=== PATIENT | female | born 2000 | race Caucasian/White ===

== ENCOUNTER 2019-01-31 01:24 | Inpatient (IN) | payer OTHER ==
--- OUTSIDE RECORDS SUMMARY | 2019-01-31 01:27 | XMS REPORT ---
:2000 Author Organization eClinicalWorks Care Team Providers Name Role Phone Sly Kimbrough Provider Role Unavailable Allergies, Adverse Reactions, Alerts Substance Reaction Event Type penicillin Info Not Available Drug Allergy metal Info Not Available Non Drug Allergy Problems Problem Type Condition Code Onset Dates Condition Status Assessment Amenorrhea N91.2 Active Problem Rash and nonspecific skin eruption R21 Active Assessment Encounter for supervision of Z34.91 Active low-risk in first trimester Assessment Encounter to determine O36.80X0 Active viability of , single or unspecified fetus Medications No Known Medications Results No Known Results Summary Purpose eClinicalWorks Submission
--- OUTSIDE RECORDS SUMMARY | 2019-01-31 01:27 | XMS REPORT ---
:2000 Author Organization eClinicalWorks Care Team Providers Name Role Phone Sly Kimbrough Provider Role Unavailable Allergies No Known Allergies Problems Problem Type Condition Code Onset Dates Condition Status Problem Rash and nonspecific skin eruption R21 Active Medications No Known Medications Results No Known Results Summary Purpose eClinicalWorks Submission
--- OUTSIDE RECORDS SUMMARY | 2019-01-31 01:27 | XMS REPORT ---
:2000 Author Organization eClinicalWorks Care Team Providers Name Role Phone Sly Kimbrough Provider Role Unavailable Allergies No Known Allergies Problems Problem Type Condition Code Onset Dates Condition Status Problem Rash and nonspecific skin eruption R21 Active Problem Encounter for care in Z34.02 Active second trimester of first Assessment Encounter for care in Z34.02 Active second trimester of first Medications Medication Code Code Instructions Start End Status Dosage System Date Date Prenate Mini [facility] [id number] 18-0.6-0.4-350 August 18, Active 1 capsule MG Orally Once a 2019 day Flagyl [facility] [id number] 500 MG Orally July 29, Active 1 tablet twice a day 2018 Prenate Elite [facility] [id number] 20-0.6-0.4 MG July 25, Active 1 tablet Orally Once a 2019 day Results No Known Results Summary Purpose eClinicalWorks Submission
--- OUTSIDE RECORDS SUMMARY | 2019-01-31 01:28 | XMS REPORT ---
:2000 Author Organization eClinicalWorks Care Team Providers Name Role Phone Sly Kimbrough Provider Role Unavailable Allergies No Known Allergies Problems Problem Type Condition Code Onset Dates Condition Status Problem Rash and nonspecific skin eruption R21 Active Problem Encounter for care in Z34.02 Active second trimester of first Medications No Known Medications Results No Known Results Summary Purpose eClinicalWorks Submission
[2019-01-31] MEDS ORDERED: PROMETHAZINE 25 MG/ML VIAL IM PRN (02:37)
[2019-01-31] MEDS ORDERED: MEPERIDINE HCL 25 MG/0.5 ML IV PRN (02:37)
[2019-01-31] MEDS ORDERED: CARBOPROST TROME 250 MCG/ML IM PRN (02:37)
[2019-01-31] MEDS ORDERED: METHYLERGONOVINE 0.2MG/ML AMP IM PRN (02:37)
[2019-01-31] MEDS ORDERED: Ringers Lactate 1,000 ML IV PRN (02:37)
[2019-01-31] MEDS ORDERED: BUTORPHANOL 1 MG/ML INJ IV PRN (02:37)
[2019-01-31] MEDS ORDERED: OXYTOCIN/LR 20 UNIT/1,000 ML BAG IV SCH ×2 (03:00→12:00)
[2019-01-31] MEDS ORDERED: Ringers Lactate 1,000 ML IV SCH (03:00)
[2019-01-31 03:02] VITALS: BMI 28.3
[2019-01-31 03:38] LABS: Absolute Lymphocytes (CBC) 1.8 K/uL (0.7-4.9); Basophils % 0.2 % (0-1.3); Hematocrit 29.1 % (36.0-45.0); Lymphocytes % 12.1 % (15.3-44.8); MPV 8.4 fL (7.6-11.3); RBC Red Blood Cell Count 3.99 M/uL (3.86-4.86)
[2019-01-31 03:44] LABS: Urine Appearance TURBID; Urine Bilirubin NEGATIVE (NEG); Urine Blood 3+ (NEG); Urine Color YELLOW; Urine Glucose NEGATIVE (NEG); Urine Protein NEGATIVE (NEG); Urine pH 7.5 (5.0-7.0)
[2019-01-31 03:48] LABS: Urine Microscopic Reflex ORDER UMIC
[2019-01-31 03:54] LABS: Urine Culture Reflex Order REFLEXED
[2019-01-31] MEDS ORDERED: FENTANYL/BUPIVACAINE/NS/PF 200 MCG/100 ML BAG EP PRN (03:54)
[2019-01-31 04:00] LABS: Urine Amorphous Sediment 3+ /HPF (NONE SEEN); Urine Bacteria >50 /HPF (<20)
[2019-01-31] MEDS ORDERED: METHYLERGONOVINE 0.2MG/ML AMP IM ONE (07:14)
[2019-01-31] MEDS ORDERED: ROPIVACAINE HCL 0 ML ONE (07:31)
[2019-01-31] MEDS ORDERED: FENTANYL CITR 100 MCG/2 ML IV ONE (07:33)
[2019-01-31] MEDS ORDERED: BUPIVACAINE 0.25% PF 10 ML VIAL ONE ×3 (08:20→08:45)
[2019-01-31] MEDS ORDERED: FENTANYL/BUPIVACAINE/NS/PF 0 MCG/0 ML BAG EP ONE (08:21)
[2019-01-31] MEDS ORDERED: FENTANYL/BUPIVACAINE/NS/PF 200 MCG/100 ML BAG EP ONE (08:24)
[2019-01-31] MEDS ORDERED: FENTANYL CITR 100 MCG/2 ML ONE (08:46)
--- NOTE | 2019-01-31 10:59 | PREOPHP ---
Date of Admission: 01/31/2019 History Of Present Illness: A 18-year-old primigravida, at 39 weeks 4 days, scheduled for induction on Wednesday, came in active labor last night. Patient is now 3 cm, 90% to 100% effaced, vertex, -1 sta tion, rupture of membranes, very light meconium staining. FHTs normal, reactive. She is Rh positive , immune to Rubella. Negative beta strep screen. Blood pressures are somewhat elevated. Her initia l urine was a clean-catch, will get a catheter specimen and see if there is any protein. Her reflexe s are basically normal and she has no discernible edema. Nonetheless, we will check her to make sure she is not developing preeclampsia. This is discussed with the family. The patient has had 2 doses of Stadol thus far. Probably, we will be requesting epidural anesthesia when she makes a little bit more progress. Right now seems to be doing well. Full labor talk given. PATY/TAMANNA Voice ID: [id number]
[2019-01-31] MEDS ORDERED: LIDOCAINE 1% MPF 30 ML VIAL ONE ×2 (11:00→11:03)
[2019-01-31] MEDS ORDERED: Oxycodone HCl/Acetaminophen 1 TAB TAB PO PRN ×2 (11:26)
[2019-01-31] MEDS ORDERED: DIPHENHYDRAMINE 25 MG TAB/CAP PO PRN (11:26)
[2019-01-31] MEDS ORDERED: BISACODYL 10 MG RECTAL SUPP RECT PRN (11:26)
[2019-01-31] MEDS ORDERED: DOCUSATE NA/SENNA CONC 1 TAB PO PRN (11:26)
[2019-01-31] MEDS ORDERED: ACETAMINOPHEN 500 MG TAB PO PRN (11:26)
[2019-01-31] MEDS: IBUPROFEN 600 MG TAB PO PRN (18:59)
--- NOTE | 2019-01-31 20:53 | OP ---
Surgeon: Nav Wellington MD A 18-year-old, primigravida, 39 weeks 4 days, scheduled for induction on Wednesday, came in in active la bor this morning. During the initial part of the labor, had Stadol 1 mg IV x2, at approximately 3-1/ 2 to 4 cm, requested and received epidural anesthesia. Second stage of 20 minutes approximately. Sp ontaneous vaginal delivery of a 6-pound 4-ounce, male infant, Apgars 9 and 9. Three small first-degr ee lacerations involving both labia minora and the posterior fourchette all sutured with 2-0 chromic after local infiltration. Schultze delivery of the placenta, which was inspected and noted to be int act and normal. 350 mL blood loss. Patient is Rh positive, immune to Rubella, negative beta strep s creen. Tolerated all procedures well. Final Diagnoses: Term intrauterine , 39 weeks 4 days, spontaneous labor, vaginal delivery, epidural anesthesia supplemented with local anesthesia. PATY/TAMANNA Voice ID: [id number] Report ID: [id number]
[2019-01-31 20:56] LABS: RPR (Rapid Plasma Reagin) NON-REACT (NON-REACT)
[2019-02-01] MEDS: IBUPROFEN 600 MG TAB PO PRN (09:30)
[2019-02-01 11:58] VITALS: BP 117/80; TEMP 97.8
--- NOTE | 2019-02-01 21:56 | DS ---
Date of Discharge: 02/01/2019 A 18-year-old primigravida, 39 weeks 4 days, came in in active labor. Subsequently, delivered a 6-po und 4-ounce male infant, Apgars 9 and 9. Epidural anesthesia. Local infiltration supplement for rep air of 3 small first-degree lacerations 2-0 chromic. Schultze delivery of the placenta, which was in spected and noted to be intact and normal. 350 mL or less blood loss. Rh positive, immune to Rubell a. Negative beta strep screen. ; afebrile, ambulating, voiding. Lochia is normal. No po st epidural problems. No analgesics requested on dismissal. She has had her Tdap shot. We will rep ort any temperature elevation of 100 degrees or greater, severe pain, heavy bleeding, or any other ty pe of abnormalities. Final Diagnoses: Term uterine 39 weeks 4 days, spontaneous vaginal delivery. Epidural ane sthesia. PATY/TAMANNA Voice ID: [id number] Report ID: [id number]
[2019-02-05 03:01] LABS: HBsAG Nonreactive (Nonreactive)
== END 2019-02-01 13:05 | disposition home or self-care (01) | DRG 807 ==
LOC: L&D 01:24 → UNDOADMIN 02:28 → 2ND-WC 02:28
PROVIDERS: ADMIT Specialist; ATTEND Specialist
PROC: 10E0XZZ Delivery of Products of Conception, External Approach (ICD-10-PCS; principal; 2019-01-31)
PROC: 0HQ9XZZ Repair Perineum Skin, External Approach (ICD-10-PCS; 2019-01-31)
PROC: 10907ZC Drainage of Amniotic Fluid, Therapeutic from Products of Conception, Via Natural or Artificial Opening (ICD-10-PCS; 2019-01-31)
DX: O70.0 First degree perineal laceration during delivery (principal); Z37.0 Single live birth; Z3A.39 39 weeks gestation of pregnancy; Z28.21 Immunization not carried out because of patient refusal
CPT/HCPCS: 36415; 81003; 81015; 85025; 86592; 86901; 87086; 87088; 87340; J0595; J2210; J2550; J3010; J7120

== ENCOUNTER 2020-01-29 03:59 | Inpatient (IN) | payer OTHER ==
--- OUTSIDE RECORDS SUMMARY | 2020-01-29 04:02 | XMS REPORT | Continuity of Care Document ---
:2000 Author Organization [facility] t Address [address] [place] [address] [address] [place] [address] Care Team Providers Name Role Phone Luana Almodovar Attending Clinician Problems Condition Condition Condition Status Onset Resolution Last Treating Co mments Source Name Details Category Date Date Treatment Clinician Date Rash and Rash and Problem Active [facility]ifi Katarina kes - c skin c skin [facility]oria eruption eruption l [facility] Encounter Encounter Problem Active [facility] a care in care in l second second [facility] trimester trimester ent of first of first Clinic s Allergies, Adverse Reactions, Alerts Allergy Allergy Status Severity Reaction(s) Onset Inactive Treating Comm ents Source Name Type Date Date Clinician penicill Adverse Active Info Not [facility] in Reaction Available kes - Memoria [facility] metal Adverse Active Info Not [facility] Reaction Available [facility] - [facility]oria [facility] ent [facility] Medications Ordered Filled Start Stop Current Ordering Indication Dosage Frequency Signature Comments Components Source Medication Medication Date Date Medication? Clinician (SIG) Name Name Sher Dsouzaate Yes Sly [address] [facility] Mini Mini 6-13 R[facility]hi [facility] - 00:00: Memoria 00 [facility] ent [facility] Flagyl Flagyl 2018- No Sly [address] [facility] 5-24 04-24 [facility] - 00:00: 00:00 Memoria 00 :00 [facility] Prenate Prenate Yes Sly [address] [facility] Elite Elite 5-20 Rekhi [facility] - 00:00: Memoria 00 [facility] Procedures This patient has no known procedures. 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 [id number] Visit REGIONAL [id number] MATERNAL [id number] & CHILD [address] [place] [address] 2018-09-06 2018-09-06 [facility] [id number] [facility] 14:15:00 14:15:00 [facility] [place]note 2] 2018-08-23 2018-08-23 [facility] [id number] 13:35:00 13:35:00 t [facility]ens [facility]ens [facility] [place][note 2] 2018-08-18 2018-08-18 [facility] [id number] 14:58:00 14:58:00 t [facility]ens [facility]omens Care [facility] - Care [facility] [place][note 2] 2018-08-18 2018-08-18 [facility] [id number] 13:58:00 13:58:00 t [facility] Care [facility] - Care [facility] [place][note 2] 2018-08-18 2018-08-18 [facility] [id number] 10:00:00 10:00:00 t [facility] [place][note 2] 2018-07-20 2018-07-20 [facility] [id number] 15:15:00 15:15:00 t [facility]ens [facility]omens Care [facility] - [facility] [place][note 2] 2018-06-28 2018-06-28 [facility] [id number] 10:43:00 10:43:00 t [facility]ens [facility]ens Care [facility] - [facility] [place][note 2] 2017-06-23 2017-06-23 [facility] [id number] 09:15:00 09:15:00 [facility] 2017-06-22 2017-06-22 Outpatient Kayla Peña [id number] 15:33:00 15:33:00 [facility] 2017-06-14 2017-06-14 Outpatient Kayla Peña [id number] 13:15:00 13:15:00 [facility] Results This patient has no known results.
[2020-01-29] MEDS ORDERED: Ringers Lactate 1,000 ML IV PRN (04:07)
[2020-01-29] MEDS ORDERED: METHYLERGONOVINE 0.2MG/ML AMP IM PRN (04:07)
[2020-01-29] MEDS ORDERED: MEPERIDINE HCL 25 MG/ML SYR IV PRN (04:07)
[2020-01-29] MEDS ORDERED: PROMETHAZINE INJ 25 MG/ML AMP IM PRN (04:07)
[2020-01-29] MEDS ORDERED: BUTORPHANOL 1 MG/ML INJ IV PRN (04:07)
[2020-01-29] MEDS ORDERED: CARBOPROST TROME 250 MCG/ML IM PRN (04:07)
[2020-01-29 04:42] VITALS: BMI 28.3
[2020-01-29 04:54] LABS: Urine Appearance CLEAR; Urine Bilirubin NEGATIVE (NEG); Urine Blood NEGATIVE (NEG); Urine Color YELLOW; Urine Glucose NEGATIVE (NEG); Urine Protein NEGATIVE (NEG)
[2020-01-29 04:57] LABS: Absolute Lymphocytes (CBC) 1.9 K/uL (0.7-4.9); Basophils % 0.7 % (0-1.3); Hematocrit 33.1 % (36.0-45.0); Lymphocytes % 22.7 % (15.3-44.8); MPV 7.8 fL (7.6-11.3); RBC Red Blood Cell Count 4.29 M/uL (3.86-4.86)
[2020-01-29] MEDS ORDERED: OXYTOCIN/LR 20 UNIT/1,000 ML BAG IV SCH (05:00)
[2020-01-29] MEDS ORDERED: Ringers Lactate 1,000 ML IV SCH (05:00)
[2020-01-29 05:25] LABS: Anisocytosis 3+; Blood Morphology Comment NOTED (NOT SEEN); Platelet Estimate ADEQ; White Blood Cell Scan OK (OK)
[2020-01-29 05:31] LABS: Urine Bacteria 20-50 /HPF (<20); Urine Culture Reflex Order REFLEXED; Urine Mucus 2+ /HPF (NONE SEEN); Urine RBC <5 /HPF (NONE SEEN); Urine Urothelial Cells <5 /HPF (NONE SEEN)
--- NOTE | 2020-01-29 07:29 | PREOPHP ---
Date of Admission: 01/29/2020 History Of Present Illness: A 19-year-old 2, para 1, 39 weeks 1 day, followed antepartum wit hout complications. Rh positive, immune to rubella negative. Strep negative, COVID, noted to be 4 c m in the office. She is indra regularly. FHTs normal, reactive. Vital signs normal. She is now 4.5 cm, 50%, maybe 60% effaced, but the baby is still between -1, -2 station. We will wait for a n hours, so I am going to check her again to see if the baby is descended somewhat. She knows if mem brane ruptures occur spontaneously to notify the nurses, so they can check quickly. Family History: Noncontributory. Allergies: THE PATIENT IS ALLERGIC TO PENICILLIN. Physical Examination: HEENT: Clear. Pupils equal, round, reactive to light and accommodation. Conjunctivae well perfused . No oral, lingual, or buccal lesions. Chest: Lungs are clear. Heart: Without murmurs, thrills, heaves, or rubs. Breasts: Without masses on previous visits. Abdomen: Term size. Extremities: Clear without edema, cyanosis, or clubbing. Pelvic exam as stated. Admit for stabilization and delivery later today. The patient has been anemi c throughout the entire and this has been discussed with patient on numerous occasions. PATY/TAMANNA Voice ID: [id number]
[2020-01-29] MEDS ORDERED: FENTANYL CITR 100 MCG/2 ML IV ONE (07:51)
[2020-01-29] MEDS ORDERED: FENTANYL/BUPIVACAINE/NS/PF 200 MCG/100 ML BAG EP PRN (07:51)
[2020-01-29] MEDS ORDERED: BUPIVACAINE 0.25% PF 10 ML VIAL IV PRN (07:52)
[2020-01-29] MEDS ORDERED: LIDOCAINE 1% MPF 30 ML VIAL ONE (08:56)
--- NOTE | 2020-01-29 08:59 | PN ---
Patient is now 7 cm, 60% to 70% effaced, vertex, -1 station, well applied, rupture of membranes, oseas r fluid. FHTs normal, reactive. Expect rapid progress from this point forward. PATY/TAMANNA Voice ID: [id number] Report ID: [id number]
[2020-01-29] MEDS ORDERED: FENTANYL CITR 100 MCG/2 ML ONE (09:18)
--- NOTE | 2020-01-29 09:38 | PN ---
At her request, the patient has had a spinal block with fentanyl, feeling much more comfortable now. Still has cervix all the way around. She is 8.5 to 9. Baby looks good. Devan regularly. We will check her again in the next 20-30 minutes when she is ready to start pushing. It should not ta ke too long at that point. PATY/TAMANNA Voice ID: [id number] Report ID: [id number]
[2020-01-29] MEDS ORDERED: DIPHENHYDRAMINE 25 MG TAB/CAP PO PRN (09:54)
[2020-01-29] MEDS ORDERED: Oxycodone HCl/Acetaminophen 1 TAB TAB PO PRN ×2 (09:54)
[2020-01-29] MEDS ORDERED: ACETAMINOPHEN 500 MG TAB PO PRN (09:54)
[2020-01-29] MEDS ORDERED: BISACODYL 10 MG RECTAL SUPP PR PRN (09:54)
[2020-01-29] MEDS ORDERED: DOCUSATE NA/SENNA CONC 1 TAB PO PRN (09:54)
[2020-01-29] MEDS ORDERED: OXYTOCIN/LR 20 UNITS/1,000 ML BAG IV SCH (10:00)
--- NOTE | 2020-01-29 10:24 | OP ---
Surgeon: Nav Wellington MD A 19-year-old, 2, para 1, 39 weeks 1 day, 4 cm on admission. Rupture of membranes at approxi mately 4.5 to 5 cm. Clear fluid. The patient went rapidly in the labor. Had attempted spinal block with fentanyl, but it did not work very well. Second stage of 15 minutes or less. Precipitous, but controlled vaginal delivery of a 7 pound 2 ounce female, Apgars 9 and 9. First-degree laceration ju st inside the introitus to the right. Six sutures of 2-0 chromic running locked and interrupted. Sc hultze delivery. The placenta was inspected and noted be intact and normal. Mild hypertonus, 0.2 mg of Methergine IM as well as IV drip Pitocin. Estimated blood loss 350 cc at this time. Methergine more prophylactic than anything. She is Rh negative, immune to rubella negative. COVID negative, st rep. Tolerated all procedures well. Final Diagnoses: Term intrauterine at 39 weeks 1 day, vaginal delivery, block with fentany l, mild uterine hypotonus. NBC/MODL Voice ID: [id number] Report ID: [id number]
[2020-01-29] MEDS: METHYLERGONOVINE 0.2 MG TAB PO SCH ×2 (11:00→16:00)
[2020-01-29] MEDS ORDERED: METHYLERGONOVINE 0.2 MG TAB PO ONE (11:12)
[2020-01-29] MEDS ORDERED: IBUPROFEN 600 MG TAB ONE (16:14)
[2020-01-29] MEDS: IBUPROFEN 200 MG TAB PO PRN (16:15)
[2020-01-29 22:51] LABS: RPR (Rapid Plasma Reagin) NON-REACT (NON-REACT)
[2020-01-30] MEDS: IBUPROFEN 200 MG TAB PO PRN (01:05)
--- NOTE | 2020-01-30 07:55 | DS ---
Hospital Course: Margarita Doyle is a 19-year-old 2, para 1, 39 weeks and 1 day, miller lisad a 7 pounds 2 ounces female, Apgars 9 and 9. Small first-degree laceration sutured with 2-0 product tester fiberglass graham. Under local infiltration, the patient had spinal block with fentanyl, but this was not very eff ective for delivery. Schultze delivery of the placenta. Estimated blood loss 350 mL. The patient h as small clots and was given Methergine prophylactically. ; afebrile, ambulating and voidi ng. Lochia is normal. Tdap and flu shots offered. No post spinal block problems or complaints. Rh positive, immune to rubella. Negative strep. Negative COVID. The patient will return to my office in 6 weeks for followup to report any temperature elevation of 100 degrees or greater, severe pain, heavy bleeding, or any other type of abnormalities. Final Diagnoses: Term intrauterine at 39 weeks 1 day, vaginal delivery. Spinal block with fentanyl for delivery. PATY/TAMANNA Voice ID: [id number] Report ID: [id number]
[2020-01-30 08:07] VITALS: BP 129/80; TEMP 97.6
[2020-01-30] MEDS ORDERED: Tdap (Diph,Pertuss(Acell),Tet Vac) 0.5 ML SYR IMVAC ONE (08:17)
[2020-02-02 03:13] LABS: HBsAG Nonreactive (Nonreactive)
== END 2020-01-30 11:45 | disposition home or self-care (01) | DRG 807 ==
LOC: 2ND-WC 03:59
PROVIDERS: ADMIT Specialist; ATTEND Specialist
PROC: 10907ZC Drainage of Amniotic Fluid, Therapeutic from Products of Conception, Via Natural or Artificial Opening (ICD-10-PCS; principal; 2020-01-29)
PROC: 10E0XZZ Delivery of Products of Conception, External Approach (ICD-10-PCS; 2020-01-29)
PROC: 0HQ9XZZ Repair Perineum Skin, External Approach (ICD-10-PCS; 2020-01-29)
DX: O99.02 Anemia complicating childbirth (principal); Z37.0 Single live birth; D64.9 Anemia, unspecified; O62.2 Other uterine inertia; O70.0 First degree perineal laceration during delivery; Z3A.39 39 weeks gestation of pregnancy; Z20.828 Contact with and (suspected) exposure to other viral communicable diseases; Z23 Encounter for immunization
CPT/HCPCS: 36415; 81001; 85025; 86592; 86901; 87086; 87088; 87340; 90471; 90715; J0595; J2210; J2590; J3010; J7120; U0003

== ENCOUNTER 2022-08-31 19:22 | Emergency (ER) | payer OTHER ==
--- OUTSIDE RECORDS SUMMARY | 2022-08-31 19:35 | XMS REPORT | Continuity of Care Document ---
:1999 Author Organization [facility] t Address [address] [place] [address] [address] [place] [address] Care Team Providers Name Role Phone Josseline Orozco Attending Clinician Unavailable KELLY NASH Attending Clinician Unavailable Kelly Almodovar Attending Clinician Doctor Unassigned, [place] Attending Clinician Unavailable Payers Payer Name Policy Type Policy Number Effective Date Expiration Date S ource [place] [id number] 2019 00:00:00 [facility] [id number] 2019 CHOICE MEDICAID 00:00:00 MEDICAID PENDING PENDING 2019 00:00:00 [facility] [id number] 2015 00:00:00 Problems Condition Condition Condition Status Onset Resolution Last Treating Co mments Source Name Details Category Date Date Treatment Clinician Date Limited Limited Disease Active 2020-0 Univers -08 ity of care, care, 00:00: [place] antepartum antepartum 00 Me dical Branch Anemia of Anemia of Disease Active 2020-0 Uni vers mother in mother in - [place] , , [place] ante[place] antepartum 00 [place] BMI BMI Disease Active 2020-0 Univers 21.0-21.9, 21.0-21.9, 8-25 it y of adult adult 00:00: [address] Multiparit Multiparit Disease Active 2020-0 U nivers y y 8-25 ity of 00:00: [address] Tobacco Tobacco Disease Active 2020-0 Univers use during use during 8-25 [place] y of , , [place] ante[place] antepartum 00 Me dical Branch Supervisio Supervisio Disease Active U nivers n of high n of high 8-25 ity of risk risk 00:00: [place] , , 00 Me dical antepartum antepartum Br anch Rash and Rash and Problem Active Commo n nonspecifi nonspecifi Sp saida c skin c skin - [facility] eruption eruption [facility] Encounter Encounter Problem Active Com mon for for Spirit - [facility] care in care in [facility] trimester trimester Medi nahum of [facility] Allergies, Adverse Reactions, Alerts Allergy Allergy Status Severity Reaction(s) Onset Inactive Treating Comm ents Source Name Type Date Date Clinician Penicill Propensi Active Swelling [facility] [place] [facility] ers ins ty to 07-11 ity of adverse 00:00: [place] reaction 00 Medical s Branch PENICILL Drug Active Hives Univers INS Class 5-06 ity of 00:00: [place] 00 Medical Branch penicill Adverse Active Info Not Commo n in Reaction Available [facility] metal Adverse Active Info Not Common Reaction Available [facility] Social History Social Habit Start Date Stop Date Quantity Comments Source ASSERTION 2019-05-30 [facility] 00:00:00 [facility] History of Smoker [facility] tobacco use [facility] Sex Assigned At [facility] y of [facility] Tobacco use and 2019-11-14 2019-11-14 Never used Univers y of exposure 00:00:00 00:00:00 [facility] Alcohol intake 2019-11-14 2019-11-14 Ex-drinker [facility] 00:00:00 00:00:00 (finding) [facility] Smoking Status Start Date Stop Date Source Current some day smoker 2019-11-14 00:00:00 [facility] [place] [facility] ersity of [facility] Medications Ordered Filled Start Stop Current Ordering Indication Dosage Frequency Signature Comments Components Source Medication Medication Date Date Medication? Clinician (SIG) Name Name 2019- No Take by Unive rs vit 11-13 mouth. ity of calc,iron,f 14:14: 00:00 [place] [facility] 11 :00 Medical ( Branch VITAMIN ORAL) 2019- No Take by Unive rs vit 11-13 mouth. ity of calc,iron,f 14:14: 00:00 [place] olic 11 :00 Medical ( Branch VITAMIN ORAL) ferrous 2020-0 Yes [id number] 325mg Take 1 Un july sulfate 325 8-26 tablet by ity of mg (65 mg 00:00: mouth 2 [place] iron) 00 (two) Medical tablet times Branch daily. ascorbic 2020-0 Yes [id number] 500mg Take 1 U nivers acid, 8-26 tablet by ity of vitamin C, 00:00[place] 500 mg 00 (three) Medical tablet times Branch daily. PNV 67-iron 2020-0 Yes [id number] 1{capsu Take 1 Univers ps-folate 8-26 le} capsule by ity of no.1-dha 00:00: mouth [place] (VITAFOL 00 daily. Medical ULTRA) 29 Branch mg iron- 1 mg-200 mg Cap ferrous 2020-0 Yes [id number] 325mg Take 1 Un july sulfate 325 8-26 tablet by ity of mg (65 mg 00:00: mouth 2 [place] iron) 00 (two) Medical tablet times Branch daily. ascorbic 2020-0 Yes [id number] 500mg Take 1 U nivers acid, 8-26 tablet by ity of vitamin C, 00:00: [place] 500 mg 00 (three) Medical tablet times Branch daily. PNV 67-iron 2020-0 Yes [id number] 1{capsu Take 1 Univers ps-folate 8-26 le} capsule by ity of no.1-dha 00:00: mouth [place] (VITAFOL 00 daily. Medical ULTRA) 29 Branch mg iron- 1 mg-200 mg Cap ferrous 2020-0 Yes [id number] 325mg Take 1 Un july sulfate 325 8-26 tablet by ity of mg (65 mg 00:00: mouth 2 [place] iron) 00 (two) Medical tablet times Branch daily. ascorbic 2020-0 Yes [id number] 500mg Take 1 U nivers acid, 8-26 tablet by ity of vitamin C, 00:00: mouth 3 [place] 500 mg 00 (three) Medical tablet times Branch daily. PNV 67-iron 2020-0 Yes [id number] 1{capsu Take 1 Univers ps-folate 8-26 le} capsule by ity of no.1-dha 00:00: mouth [place] (VITAFOL 00 daily. Medical ULTRA) 29 Branch mg iron- 1 mg-200 mg Cap 2020-0 Yes Take by [facility] vit 8-25 mouth. ity of calc,iron,f 14:37: [place] [id number] Medical ( Branch VITAMIN ORAL) Yes Take by [facility] vit 8-25 mouth. ity of calc,iron,f 14:37: [place] [id number] Medical ( Branch VITAMIN ORAL) Yes Take by [facility] vit 8-25 mouth. ity of calc,iron,f 14:37: [place] [id number] Medical ( Branch VITAMIN ORAL) Yes Take by [facility] vit 8-25 mouth. ity of calc,iron,f 14:37: [place] [id number] Medical ( Branch VITAMIN ORAL) hydrOXYzine 2020- No 25mg Take 25 mg Univers (ATARAX) 25 8-25 08-25 by mouth ity of mg tablet 14:35: 00:00 every 6 [place] 01 :00 (six) Medical hours. Branch hydrOXYzine 2019- No 25mg Take 25 mg Univers (ATARAX) 25 8-25 08-25 by mouth ity of mg tablet 14:35: 00:00 every 6 [place] 01 :00 (six) Medical hours. Branch Prenate Prenate Yes Sly 1 capsule Common Mini Mini 6-13 [facility] 00:00: - [facility] 00 [facility] Flagyl Flagyl 2018- No Sly 1 tablet Common 5-24 04-24 [facility] 00:00: 00:00 - [facility] 00 :00 [facility] Prenate Prenate Yes Sly 1 tablet Common Elite Elite 5-20 [facility] 00:00: - [facility] 00 [facility] fluocinolon 2020- No Apply to U nivers e 09-09 08-25 area(s) 2 ity of (DERMA-SMOO 00:00: 00:00 (two) [place] THE/FS BODY 00 :00 times Medical OIL) 0.01 % daily as Bran ch body oil needed for Rash. hydrOXYzine 2020- No 10mg Take 1 Uni vers (ATARAX) 10 09-09 08-25 tablet by it y of mg tablet 00:00: 00:00 mouth [place] 00 :00 every 6 Medical (six) Branch hours as needed for Itching. tretinoin 2019- No Apply to Uni vers (RETIN-A) 09-09 affected ity o f 0.025 % 00:00: 00:00 area(s) at [place] as cream 00 :00 bedtime. Medical Branch fluocinolon 2020- No Apply to U nivers e 09-09 area(s) 2 ity of (DERMA-SMOO 00:00: 00:00 (two) [place] THE/FS BODY 00 :00 times Medical OIL) 0.01 % daily as Bran ch body oil needed for Rash. hydrOXYzine 2019- No 10mg Take 1 Uni vers (ATARAX) 10 09-09 tablet by it y of mg tablet 00:00: 00:00 mouth [place] 00 :00 every 6 Medical (six) Branch hours as needed for Itching. tretinoin 2019- No Apply to Uni vers (RETIN-A) 09-09 affected ity o f 0.025 % 00:00: 00:00 area(s) at [place] as cream 00 :00 bedtime. Medical Branch fluocinonid 2020- No Apply to U nivers e (LIDEX) 07-11 area(s) 2 ity of 0.05 % 00:00: 00:00 (two) [place] ointment 00 :00 times Medical daily. Branch fluocinonid 2020- No Apply to U nivers e (LIDEX) 07-11 area(s) 2 ity of 0.05 % 00:00: 00:00 (two) [place] ointment 00 :00 times Medical daily. Branch betamethaso 2012-03 2020- No Apply to U nivers ne 0-25 area(s) 2 ity of dipropionat 00:00: 00:00 (two) [place] 00 :00 times Medical (DIPROLENE) daily. Branch 0.05 % cream betamethaso 2012-03 2020- No Apply to U nivers ne 0-19 10-25 area(s) 2 ity of dipropionat 00:00: 00:00 (two[place] 00 :00 times Medical (DIPROLENE) daily. Branch 0.05 % cream triamcinolo 2020- No Apply to U nivers ne 11-28 area(s) 2 ity of acetonide 00:00: 00:00 (two) [place] (KENALOG) 00 :00 times Medical 0.1 % daily. Branch ointment triamcinolo 2020- No Apply to U nivers ne 11-28 area(s) 2 ity of acetonide 00:00: 00:00 (two) [place] (KENALOG) 00 :00 times Medical 0.1 % daily. Branch ointment Vital Signs Vital Name Observation Time Observation Value Comments Source Systolic blood 2019-11-14 14:14:00 125 mm[Hg] Univer sity of [facility] Diastolic blood 2019-11-14 14:14:00 80 mm[Hg] Unive rsity of [facility] Heart rate 2019-11-14 14:14:00 101 /min Universi ty [facility] Body temperature 2019-11-14 14:14:00 37 [place] [facility] Respiratory rate 2019-11-14 14:14:00 16 /min [facility] [place] [facility] Body height 2019-11-14 14:14:00 157.5 cm Universi ty [facility] Body weight 2019-11-14 14:14:00 65.97 kg Universi ty [facility] BMI 2019-11-14 14:14:00 26.60 kg/m2 Universi ty [facility] Systolic blood 2019-11-14 14:14:00 125 mm[Hg] Univer sity of [facility] Diastolic blood 2019-11-14 14:14:00 80 mm[Hg] Unive rsity of [facility] Heart rate 2019-11-14 14:14:00 101 /min Universi ty [facility] Body temperature 2019-11-14 14:14:00 37 [place] [facility] Respiratory rate 2019-11-14 14:14:00 16 /min [facility] [place] [facility] Body height 2019-11-14 14:14:00 157.5 cm Universi ty [facility] Body weight 2019-11-14 14:14:00 65.97 kg Universi ty [facility] BMI 2019-11-14 14:14:00 26.60 kg/m2 Universi ty of [facility] Systolic blood 2019-10-31 14:27:00 129 mm[Hg] Univer sity of pressure [facility] Diastolic blood 2019-10-31 14:27:00 86 mm[Hg] Unive rsity of pressure [facility] Heart rate 2019-10-31 14:27:00 102 /min Universi ty [facility] Body temperature 2019-10-31 14:27:00 36.83 [place] [facility] [place] [facility] Respiratory rate 2019-10-31 14:27:00 16 /min [facility] [place] [facility] Body height 2019-10-31 14:27:00 157.5 cm Universi ty [facility] Body weight 2019-10-31 14:27:00 63.957 kg Universi ty [facility] BMI 2019-10-31 14:27:00 25.79 kg/m2 Universi ty [facility] Procedures Procedure Date / Time Performed Performing Clinician Sourantione e POCT URINALYSIS W/O 2019-11-14 14:19:[facility] ASSIGNMENT OF BENEFITS 2019-10-31 16:33:59 Doctor Unassigned, [facility] POCT URINALYSIS W/O 2019-10-31 14:29:00 [facility] [place] [facility] SPECIFIC GRAVITY [facility] POCT TEST 2019-10-31 14:28:00 Sumaya De [facility] [place] [facility] Encounters Start End Encounter Admission Attending Care Care Encounter Source Date/Time Date/Time Type Type Clinicians Facility Department ID 2021-04-[address] [facility] [id number] Common 12:00:48 Josseline [id number] [facility] 2019-12-21 2019-12-21 Outpatient Tiff NASH [facility] [id number] Univers 15:30:00 15:30:00 KELLY lee [facility] 2019-12-21 2019-12-21 Outpatient Tiff NASH [facility] [id number] Univers 15:30:00 15:30:00 KELLY lee [facility] 2019-11-28 2019-11-28 Outpatient R [facility] [id number] Univers 09:30:00 09:30:00 KELLY lee [facility] 2019-11-14 2019-11-14 Routine [facility] [id number] 08:57:01 09:26:31 Kelly N NARRATIVE WRITER [id number] Visit REGIONAL [id number] MATERNAL [id number] & CHILD [address] [place] [address] 2019-11-14 2019-11-14 Routine [facility] [id number] Univers 08:57:01 09:26:31 Kelly N NARRATIVE WRITER [id number] i ty of Visit REGIONAL [id number] [place] MATERNAL [phone] [facility] & [address] 2019-11-14 2019-11-14 Outpatient R [facility] [id number] Univers 08:45:00 08:45:00 KELLY lee [facility] 2019-11-01 2019-11-01 Telephone [facility] [id number] Univers 00:00:00 00:00:00 Kelly N NARRATIVE WRITER [id number] it y of REGIONAL [id number] [place] MATERNAL [id number] [facility] & CHILD [address] [place] [address] 2019-10-31 2019-10-31 Initial [facility] [id number] Univers 09:22:06 10:14:26 Kelly N NARRATIVE WRITER [id number] i ty of Visit REGIONAL [id number] [place] MATERNAL [id number] [facility] & CHILD [address] [place] [address] 2019-10-31 2019-10-31 Outpatient R [facility] [id number] Univers 08:30:00 08:30:00 ity of [facility] 2019-10-31 2019-10-31 Orders Doctor ARRIAGA [id number] Univers 00:00:00 00:00:00 Only Unassigned, LINDA [id number] ity of [place] [facility] [id number] [place] [id number] [place] [address] Branch 2018-09-06 2018-09-06 Out[id number] Common 14:15:00 14:15:00 [facility] Care [facility] 2018-08-23 2018-08-23 Out[facility] [id number] Common 13:35:00 13:35:00 t [facility] 2018-08-18 2018-08-18 Out[facility] [id number] Common 14:58:00 14:58:00 t [facility] S pirit Care [facility] 2018-08-18 2018-08-18 Outpatient [facility] [id number] Common 13:58:00 13:58:00 t Women [facility]ens Care pirit Care [facility] 2018-08-18 2018-08-18 Out[facility] [id number] Common 10:00:00 10:00:00 t [facility] 2018-07-20 2018-07-20 Out[facility] [id number] Common 15:15:00 15:15:00 t [facility]omens [facility]omens Care S pirit Care [facility] 2018-06-28 2018-06-28 Outpatient [facility] [id number] Common 10:43:00 10:43:00 t [facility]omens [facility]omens Care S pirit Care Clinic - [facility] 2017-06-23 2017-06-23 Out[facility] [id number] Common 09:15:00 09:15:00 t Women's Women's Spir it Care Care Clinic - [facility] 2017-06-22 2017-06-22 Out[facility] [id number] Common 15:33:00 15:33:00 t [facility] it Care Care Clinic - [facility] 2017-06-14 2017-06-14 Out[facility] [id number] Common 13:15:00 13:15:00 t Women's Women's [facility] - I Clinic [facility] Results Test Description Test Time Test Comments Results Result Comments Source POCT URINALYSIS W/O SPECIFIC GRAVITY 2019-11-14 14:20:00 Test Item Value Reference Range Interpretation Comme nts POCT PH U (test code = 3254) . 5-8 POCT U LEUK EST (test code = 3263) . Negative - Negative POCT U NIT (test code = 3262) . Negative - Negative POCT U PROT (test code = 3259) trace Negative - Negative POCT U GLU (test code = 3256) neg Negative - Negative POCT U KETONE (test code = 3258) . Negative - Negative POCT U BLD (test code = 3257) . Negative - Negative [facility] [place] [facility] SPECIFIC [id number] 14:20:00 Test Item Value Reference Range Interpretation Comments POCT PH U (test code = 3254) . 5-8 POCT U LEUK EST (test code = 3263) . Negative - Negative POCT U NIT (test code = 3262) . Negative - Negative POCT U PROT (test code = 3259) trace Negative - Negative POCT U GLU (test code = 3256) neg Negative - Negative POCT U KETONE (test code = 3258) . Negative - Negative POCT U BLD (test code = 3257) . Negative - Negative [facility] [place] [facility] [id number] 14:29:00 Test Item Value Reference Range Interpretation Comments POCT PREG (test code = 1605) Positive On board controls acceptable with C Yes Line (test code = 3574) POCT PREG LOT # (test code = 3575) POCT PREG TEST DATE (test code = 3576) [facility] [place] [facility] W/O SPECIFIC [id number] 14:29:00 Test Item Value Reference Range Interpretation Comments POCT PH U (test code = 3254) 5 mg/dl 5-8 POCT U LEUK EST (test code = 2+ Negative - Negative 3263) POCT U NIT (test code = 3262) neg Negative - Negative POCT U PROT (test code = 3259) 2+ Negative - Negative POCT U GLU (test code = 3256) 1+ Negative - Negative POCT U KETONE (test code = 3258) neg Negative - Negative POCT U BLD (test code = 3257) neg Negative - Negative Lab Interpretation (test code = Abnormal 78015-8) [facility] [place] [facility] [id number] 14:29:00 Test Item Value Reference Range Interpretation Comments POCT PREG (test code = 1605) Positive On board controls acceptable with C Yes Line (test code = 3574) POCT PREG LOT # (test code = 3575) POCT PREG TEST DATE (test code = 3576) [facility] URINALYSIS W/O SPECIFIC [id number] 14:29:00 Test Item Value Reference Range Interpretation Comments POCT PH U (test code = 3254) 5 mg/dl 5-8 POCT U LEUK EST (test code = 2+ Negative - Negative 3263) POCT U NIT (test code = 3262) neg Negative - Negative POCT U PROT (test code = 3259) 2+ Negative - Negative POCT U GLU (test code = 3256) 1+ Negative - Negative POCT U KETONE (test code = 3258) neg Negative - Negative POCT U BLD (test code = 3257) neg Negative - Negative Lab Interpretation (test code = Abnormal 24828-6) [facility]
[2022-08-31] MEDS ORDERED: KETOROLAC 30 MG/ML INJ ONE (20:31)
[2022-08-31 20:50] LABS: Urine Bacteria <20 /HPF (<20); Urine Bilirubin NEGATIVE (Negative); Urine Blood Negative (Negative); Urine Clarity Clear (Clear); Urine Color Yellow (Yellow); Urine Glucose NEGATIVE (Negative); Urine Mucus Slight /HPF (None Seen); Urine Protein TRACE (Negative); Urine RBC <5 /HPF (None Seen); Urine Urobilinogen Normal (Normal); Urine pH 5.5 (5.0-7.0)
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
[2022-08-31 22:08] VITALS: BP 127/47; TEMP 99.3; O2SAT 100
== END 2022-08-31 21:39 | disposition home or self-care (01) ==
LOC: ER 19:22
DX: S16.1XXA Strain of muscle, fascia and tendon at neck level, initial encounter (principal); S20.229A Contusion of unspecified back wall of thorax, initial encounter; M54.50 Low back pain, unspecified; V49.9XXA Car occupant (driver) (passenger) injured in unspecified traffic accident, initial encounter; Z88.0 Allergy status to penicillin
CPT/HCPCS: 70450; 71250; 72125; 81001; 81025

== ENCOUNTER → 2023-04-23 | Emergency (ER) | payer OTHER ==
[~2023-04-23] MED LIST: AZITHROMYCIN 250 MG TAB ONE; ONDANSETRON 4 MG (ODT) TAB ONE
--- OUTSIDE RECORDS SUMMARY | 2023-04-23 08:19 | XMS REPORT | Continuity of Care Document ---
Author Name Unknown Address [address] [place] [address] [facility] Address [address] [place] [address] Care Team Providers Care Storage Engineer Name Role Phone Josseline Orozco Attending Clinician KELLY Kilgore Attending Clinician Kelly Ellington Attending Clinician [phone] Doctor Unassigned, [place] Attending Clinician U navailable Payers Payer Name Policy Type Policy Number Effective Date Expirati on Date Source [place] [id number] 2019 00:00:00 [facility] MEDICAID [id number] 2019 00:00:00 MEDICAID PENDING PENDING 2019 00:00:00 [facility] [id number] 00:00:00 Problems Condition Name Condition Details Condition Category Status Onset Date Resolution Date Last Treatment Date Treating Clinician Comments Source Limited care, antepartum Limited care, antepartum Disease Active 11-13 00:00: 00 [facility] Anemia of mother in , antepartum Anemia of mother in , antepartum Disease Active 10-31 00:00: 00 [facility] BMI 21.0-21.9, adult BMI 21.0-21.9, adult Disease Active 10-30 00:00: 00 [facility] Multiparit y Multiparit y Disease Active 10-30 00:00: 00 [facility] Tobacco use during , antepartum Tobacco use during , antepartum Disease Active 10-30 00:00: 00 [facility] Supervisio n of high risk , antepartum Supervisio n of high risk , antepartum Disease Active 10-30 00:00: 00 [facility] Rash and nonspecifi c skin eruption Rash and nonspecifi c skin eruption Problem Active [facility] Encounter for care in second trimester of first Encounter for care in second trimester of first Problem Active [facility] Allergies, Adverse Reactions, Alerts Allergy Name Allergy Type Status Severity Reaction(s) Onset Date Inactive Date Treating Clinician Comments Source Penicill ins Propensi ty to adverse reaction s Active Swelling 07-11 00:00: 00 [facility] PENICILL INS Drug Class Active Hives 07-11 00:00: 00 [facility] penicill in Adverse Reaction Active Info Not Available [facility] metal Adverse Reaction Active Info Not Available [facility] Social History Social Habit Start Date Stop Date Quantity Comments Source ASSERTION 2019-05-30 00:00:00 [facility] History of tobacco use Smoker [facility] Sex Assigned At [facility] Tobacco use and exposure 2019-11-14 00:00:00 2019-11-14 00:00:00 Never used [facility] Alcohol intake 2019-11-14 00:00:00 2019-11-14 00:00:00 Ex-drinker (finding) [facility] Smoking Status Start Date Stop Date Source Current some day smoker 2019-11-14 00:00:00 [facility] Medications Ordered Medication Name Filled Medication Name Start Date Stop Date Current Medication? Ordering Clinician Indication Dosage Frequency Signature (SIG) Comments Components Source vit calc,iron,f olic ( VITAMIN ORAL) 11-13 14:14: 11 11-13 00:00 :00 No Take by mouth. [facility] vit calc,iron,f olic ( VITAMIN ORAL) 11-13 14:14: 11 11-13 00:00 :00 No Take by mouth. [facility] ferrous sulfate 325 mg (65 mg iron) tablet 10-31 00:00: 00 Yes [id number] 325mg Take 1 tablet by mouth 2 (two) times daily. [facility] ascorbic acid, vitamin C, 500 mg tablet 10-31 00:00: 00 Yes [id number] 500mg Take 1 tablet by mouth 3 (three) times daily. [facility] PNV 67-iron ps-folate no.1-dha (VITAFOL ULTRA) 29 mg iron- 1 mg-200 mg Cap 10-31 00:00: 00 Yes [id number] 1{capsu le} Take 1 capsule by mouth daily. [facility] ferrous sulfate 325 mg (65 mg iron) tablet 10-31 00:00: 00 Yes [id number] 325mg Take 1 tablet by mouth 2 (two) times daily. [facility] ascorbic acid, vitamin C, 500 mg tablet 10-31 00:00: 00 Yes [id number] 500mg Take 1 tablet by mouth 3 (three) times daily. [facility] PN 67-iron ps-folate no.1-dha (VITAFOL ULTRA) 29 mg iron- 1 mg-200 mg Cap 10-31 00:00: 00 Yes [id number] 1{capsu le} Take 1 capsule by mouth daily. [facility] ferrous sulfate 325 mg (65 mg iron) tablet 10-31 00:00: 00 Yes [id number] 325mg Take 1 tablet by mouth 2 (two) times daily. [facility] ascorbic acid, vitamin C, 500 mg tablet 10-31 00:00: 00 Yes [id number] 500mg Take 1 tablet by mouth 3 (three) times daily. [facility] PNV 67-iron ps-folate no.1-dha (VITAFOL ULTRA) 29 mg iron- 1 mg-200 mg Cap 10-31 00:00: 00 Yes [id number] 1{capsu le} Take 1 capsule by mouth daily. [facility] vit calc,iron,f olic ( VITAMIN ORAL) 10-30 14:37: 12 Yes Take by mouth. [facility] vit calc,iron,f olic ( VITAMIN ORAL) 10-30 14:37: 12 Yes Take by mouth. [facility] vit calc,iron,f olic ( VITAMIN ORAL) 10-30 14:37: 12 Yes Take by mouth. [facility] vit calc,iron,f olic ( VITAMIN ORAL) 10-30 14:37: 12 Yes Take by mouth. [facility] hydrOXYzine (ATARAX) 25 mg tablet 10-30 14:35: 10-30 00:00 :00 No 25mg Take 25 mg by mouth every 6 (six) hours. [facility] hydrOXYzine (ATARAX) 25 mg tablet 10-30 14:35: 10-30 00:00 :00 No 25mg Take 25 mg by mouth every 6 (six) hours. [facility] Prenate Mini Prenate Mini 613 00:00: 00 Yes Sly Kimbrough 1 capsule [facility] Flagyl Flagyl 07-29 00:00: 00 06-29 00:00 :00 No Sly Luai 1 tablet [facility] Prenate Elite Prenate Elite 20 00:00: 00 Yes Sly Kimbrough 1 tablet [facility] fluocinolon e (DERMA-SMOO THE/FS BODY OIL) 0.01 % body oil 09-09 00:00: 00 10-30 00:00 :00 No Apply to area(s) 2 (two) times daily as needed for Rash. [facility] hydrOXYzine (ATARAX) 10 mg tablet 09-09 00:00: 00 10-30 00:00 :00 No 10mg Take 1 tablet by mouth every 6 (six) hours as needed for Itching. [facility] tretinoin (RETIN-A) 0.025 % cream 09-09 00:00: 10-30 00:00 :00 No Apply to affected area(s) at bedtime. [facility] fluocinolon e (DERMA-SMOO THE/FS BODY OIL) 0.01 % body oil 09-09 00:00: 10-30 00:00 :00 No Apply to area(s) 2 (two) times daily as needed for Rash. [facility] hydrOXYzine (ATARAX) 10 mg tablet 09-09 00:00: 00 10-30 00:00 :00 No 10mg Take 1 tablet by mouth every 6 (six) hours as needed for Itching. [facility] tretinoin (RETIN-A) 0.025 % cream 09-09 00:00: 10-30 00:00 :00 No Apply to affected area(s) at bedtime. [facility] fluocinonid e (LIDEX) 0.05 % ointment 07-11 00:00: 10-30 00:00 :00 No Apply to area(s) 2 (two) times daily. [facility] fluocinonid e (LIDEX) 0.05 % ointment 07-11 00:00: 10-30 00:00 :00 No Apply to area(s) 2 (two) times daily. [facility] betamethaso ne dipropionat e (DIPROLENE) 0.05 % cream 2012-03 00:00: 00 10-30 00:00 :00 No Apply to area(s) 2 (two) times daily. [facility] betamethaso ne dipropionat e (DIPROLENE) 0.05 % cream 2012-03 00:00: 00 10-30 00:00 :00 No Apply to area(s) 2 (two) times daily. [facility] triamcinolo ne acetonide (KENALOG) 0.1 % ointment 9- 00:00: 00 10-30 00:00 :00 No Apply to area(s) 2 (two) times daily. [facility] triamcinolo ne acetonide (KENALOG) 0.1 % ointment 11-28 00:00: 00 10-30 00:00 :00 No Apply to area(s) 2 (two) times daily. [facility] Vital Signs Vital Name Observation Time Observation Value Marina rueda Systolic blood pressure 2019-11-14 14:14:00 125 mm[Hg] [facility] Diastolic blood pressure 2019-11-14 14:14:00 80 mm[Hg] [facility] Heart rate 2019-11-14 14:14:00 101 /min [facility] Body temperature 2019-11-14 14:14:00 37 [place] [facility] Respiratory rate 2019-11-14 14:14:00 16 /min [facility] Body height 2019-11-14 14:14:00 157.5 cm [facility] Body weight 2019-11-14 14:14:00 65.97 kg [facility] BMI 2019-11-14 14:14:00 26.60 kg/m2 [facility] Systolic blood pressure 2019-11-14 14:14:00 125 mm[Hg] [facility] Diastolic blood pressure 2019-11-14 14:14:00 80 mm[Hg] [facility] Heart rate 2019-11-14 14:14:00 101 /min [facility] Body temperature 2019-11-14 14:14:00 37 [place] [facility] Respiratory rate 2019-11-14 14:14:00 16 /min [facility] Body height 2019-11-14 14:14:00 157.5 cm [facility] Body weight 2019-11-14 14:14:00 65.97 kg [facility] BMI 2019-11-14 14:14:00 26.60 kg/m2 [facility] Systolic blood pressure 2019-10-31 14:27:00 129 mm[Hg] [facility] Diastolic blood pressure 2019-10-31 14:27:00 86 mm[Hg] [facility] Heart rate 2019-10-31 14:27:00 102 /min [facility] Body temperature 2019-10-31 14:27:00 36.83 [place] [facility] Respiratory rate 2019-10-31 14:27:00 16 /min [facility] Body height 2019-10-31 14:27:00 157.5 cm [facility] Body weight 2019-10-31 14:27:00 63.957 kg [facility] BMI 2019-10-31 14:27:00 25.79 kg/m2 [facility] Procedures Procedure Date / Time Performed Performing Clinicia n Source POCT URINALYSIS W/O SPECIFIC GRAVITY 2019-11-14 14:19:00 Kelly Nash [facility] ASSIGNMENT OF BENEFITS 2019-10-31 16:33:59 Docto r Unassigned, [place] [facility] POCT URINALYSIS W/O SPECIFIC GRAVITY 2019-10-31 14:29:00 Sumaya De Luna [facility] POCT TEST 2019-10-31 14:28:00 Derik De Luna [facility] Encounters Start Date/Time End Date/Time Encounter Type Admission Type Attending [facility] Care Facility Care Department Encounter ID Source 2021-04-02 12:00:48 Outpatient Josseline Orozco [facility] [id number] [facility] [place] 2019-12-21 15:30:00 2019-12-21 15:30:00 Outpatient KELLY JIM [facility] [id number] [facility] 2019-12-21 15:30:00 2019-12-21 15:30:00 Outpatient R KELLY NASH [facility] [id number] [facility] 2019-11-28 09:30:00 2019-11-28 09:30:00 Outpatient R KELLY NASH [facility] [id number] [facility] 2019-11-14 08:57:01 2019-11-14 09:26:31 Routine Visit Kelly Nash [facility] [id number] 2019-11-14 08:57:01 2019-11-14 09:26:31 Routine Visit Kelly Nash [facility]ILD [email or web address] [id number] [facility] 2019-11-14 08:45:00 2019-11-14 08:45:00 Outpatient R KELLY NASH [facility] [id number] [facility] 2019-11-01 00:00:00 2019-11-01 00:00:00 Telephone Kelly Nash [facility] [[email or web address] [id number] [facility] 2019-10-31 09:22:06 2019-10-31 10:14:26 Initial Visit Kelly Nash [facility] [[email or web address]] [id number] [facility] 2019-10-31 08:30:00 2019-10-31 08:30:00 Outpatient R [facility] [id number] [facility] 2019-10-31 00:00:00 2019-10-31 00:00:00 Orders Only Doctor Unassigned, [place] [facility] [id number] [facility] 2018-09-06 14:15:00 2018-09-06 14:15:00 [facility] [id number] [facility] 2018-08-23 13:35:00 2018-08-23 13:35:00 [facility] [id number] [facility] 2018-08-18 14:58:00 2018-08-18 14:58:00 [facility] [id number] [facility] 2018-08-18 13:58:00 2018-08-18 13:58:00 [facility] [id number] [facility] 2018-08-18 10:00:00 2018-08-18 10:00:00 [facility] [id number] [facility] 2018-07-20 15:15:00 2018-07-20 15:15:00 [facility] [id number] [facility] 2018-06-28 10:43:00 2018-06-28 10:43:00 [facility] [id number] [facility] 2017-06-23 09:15:00 2017-06-23 09:15:00 [facility] [id number] [facility] 2017-06-22 15:33:00 2017-06-22 15:33:00 [facility] [id number] [facility] 2017-06-14 13:15:00 2017-06-14 13:15:00 [facility] [id number] [facility] Results Test Description Test Time Test Comments Results Result Co mments Source [facility] W/O SPECIFIC [id number] 14:20:00* Test Item Value Reference Range Interpretation Comme nts POCT PH U (test code = 3254) . 5-8 POCT U LEUK EST (test code = 3263) . Negative - N egative POCT U NIT (test code = 3262) . Negative - Negati ve POCT U PROT (test code = 3259) trace Negative - Negat karina POCT U GLU (test code = 3256) neg Negative - Negati ve POCT U KETONE (test code = 3258) . Negative - Neg ative POCT U BLD (test code = 3257) . Negative - Negati ve [facility] [id number] 14:29:00* Test Item Value Reference Range Interpretation Comme nts POCT PREG (test code = 1605) Positive On board controls acceptable with C Line (test code = 3574) Yes POCT PREG LOT # (test code = 3575) POCT PREG TEST DATE ( test code = 357) [facility] URINALYSIS W/O SPECIFIC [id number] 14:29:00* Test Item Value Reference Range Interpretation Comme nts POCT PH U (test code = 3254) 5 mg/dl 5-8 POCT U LEUK EST (test code = 3263) 2+ Negative - Negative POCT U NIT (test code = 3262) neg Negative - Negati ve POCT U PROT (test code = 3259) 2+ Negative - Negat karina POCT U GLU (test code = 3256) 1+ Negative - Negati ve POCT U KETONE (test code = 3258) neg Negative - Neg ative POCT U BLD (test code = 3257) neg Negative - Negati ve Lab Interpretation (test cod e = 74314-3) Abnormal [facility] [id number] 14:29:00* Test Item Value Reference Range Interpretation Comme nts POCT PREG (test code = 1605) Positive On board controls acceptable with C Line (test code = 3574) Yes POCT PREG LOT # (test code = 3575) POCT PREG TEST DATE ( test code = 3576) [facility] URINALYSIS W/O SPECIFIC [id number] 14:29:00* Test Item Value Reference Range Interpretation Comme nts POCT PH U (test code = 3254) 5 mg/dl 5-8 POCT U LEUK EST (test code = 3263) 2+ Negative - Negative POCT U NIT (test code = 3262) neg Negative - Negati ve POCT U PROT (test code = 3259) 2+ Negative - Negat karina POCT U GLU (test code = 3256) 1+ Negative - Negati ve POCT U KETONE (test code = 3258) neg Negative - Neg ative POCT U BLD (test code = 3257) neg Negative - Negati ve Lab Interpretation (test cod e = [id number]) Abnormal [facility]
--- NOTE | 2023-04-23 08:52 | RAD REPORT ---
EXAM DESCRIPTION: Nancy Kowalski (2 Views)04/23/2023 8:46 am CLINICAL HISTORY: Cough COMPARISON: None FINDINGS: The lungs appear clear of acute infiltrate. The heart is normal size IMPRESSION: No acute abnormalities displayed
[2023-04-23 09:15] LABS: SARS-CoV-2 Antigen Rapid Res Negative (Negative)
--- NOTE | 2023-04-23 10:10 | EDPHYS ---
Physician Documentation [facility] Name: Margarita Doyle Age: 22 yrs Sex: Female : 2000 Arrival Date: 04/23/2023 Time: 08:15 Bed 13 Private MD: NATALI Physician Pascual Peterson HPI: 04/23 10:03 This 22 yrs old Female presents to ER via Ambulatory with complaints of Flu demetrius Symptoms, Shortness Of Breath. 10:03 The patient has shortness of breath at rest, with light activity. Onset: The demetrius symptoms/episode began/occurred 2 day(s) ago. Duration: The symptoms are continuous, and are steadily getting worse. The patient's shortness of breath has no apparent modifying factors. Associated signs and symptoms: The patient has no apparent associated signs or symptoms. Severity of symptoms: At their worst the symptoms were moderate. The patient has experienced similar episodes in the past, a few times. Historical: - Allergies: 08:33 PENICILLINS; aa5 - PMHx: 08:33 None; aa5 - PSHx: 08:33 Tonsillectomy; aa5 - Immunization history:: Adult Immunizations unknown. - Social history:: Smoking status: Reported history of juuling and/or vaping. ROS: 10:03 Constitutional: Negative for fever, chills, and weight loss, Eyes: Negative for injury, demetrius pain, redness, and discharge, ENT: Negative for injury, pain, and discharge, Neck: Negative for injury, pain, and swelling, Cardiovascular: Negative for chest pain, palpitations, and edema, Abdomen/GI: Negative for abdominal pain, nausea, vomiting, diarrhea, and constipation, Back: Negative for injury and pain, : Negative for injury, bleeding, discharge, and swelling, MS/Extremity: Negative for injury and deformity, Skin: Negative for injury, rash, and discoloration, Neuro: Negative for headache, weakness, numbness, tingling, and seizure, Psych: Negative for depression, anxiety, suicide ideation, homicidal ideation, and hallucinations, Allergy/Immunology: Negative for hives, rash, and allergies, Endocrine: Negative for neck swelling, polydipsia, polyuria, polyphagia, and marked weight changes, Hematologic/Lymphatic: Negative for swollen nodes, abnormal bleeding, and unusual bruising, 10:03 Respiratory: Positive for cough, with no reported sputum, Exam: 10:03 Constitutional: This is a well developed, well nourished patient who is awake, alert, demetrius and in no acute distress. Head/Face: Normocephalic, atraumatic. Eyes: Pupils equal round and reactive to light, extra-ocular motions intact. Lids and lashes normal. Conjunctiva and sclera are non-icteric and not injected. Cornea within normal limits. Periorbital areas with no swelling, redness, or edema. ENT: Nares patent. No nasal discharge, no septal abnormalities noted. Tympanic membranes are normal and external auditory canals are clear. Oropharynx with no redness, swelling, or masses, exudates, or evidence of obstruction, uvula midline. Mucous membranes moist. Neck: Trachea midline, no thyromegaly or masses palpated, and no cervical lymphadenopathy. Supple, full range of motion without nuchal rigidity, or vertebral point tenderness. No Meningismus. Chest/axilla: Normal chest wall appearance and motion. Nontender with no deformity. No lesions are appreciated. Cardiovascular: Regular rate and rhythm with a normal S1 and S2. No gallops, murmurs, or rubs. Normal PMI, no JVD. No pulse deficits. Respiratory: Lungs have equal breath sounds bilaterally, clear to auscultation and percussion. No rales, rhonchi or wheezes noted. No increased work of breathing, no retractions or nasal flaring. Abdomen/GI: Soft, non-tender, with normal bowel sounds. No distension or tympany. No guarding or rebound. No evidence of tenderness throughout. Back: No spinal tenderness. No costovertebral tenderness. Full range of motion. Skin: Warm, dry with normal turgor. Normal color with no rashes, no lesions, and no evidence of cellulitis. MS/ Extremity: Pulses equal, no cyanosis. Neurovascular intact. Full, normal range of motion. Neuro: Awake and alert, GCS 15, oriented to person, place, time, and situation. Cranial nerves II-XII grossly intact. Motor strength 5/5 in all extremities. Sensory grossly intact. Cerebellar exam normal. Normal gait. Psych: Awake, alert, with orientation to person, place and time. Behavior, mood, and affect are within normal limits. Vital Signs: 08:22 BP 140 / 107; Pulse 107; Resp 18 S; Temp 98.4(O); Pulse Ox 100% on R/A; Weight 74.39 kg aa5 (R); Height 5 ft. 2 in. (R); 08:56 BP 126 / 92; Pulse 102; Resp 18; Pulse Ox 99% on R/A; mb9 09:32 BP 134 / 90; Pulse 97; Resp 16; Pulse Ox 100% on R/A; mb9 10:23 BP 124 / 86; Pulse 88; Resp 16; Pulse Ox 100% on R/A; mb9 08:22 Body Mass Index 30.00 (74.39 kg, 157.48 cm) aa5 MDM: 08:[address] [facility] 10:07 Differential diagnosis: Bronchitis reactive airway, CHF, anaphylaxis, URI, foreign demetrius body, pneumonia, pulmonary edema, Pulmonary Embolism reactive airway disease. Antibiotic administration: The patient is discharged and will get outpatient antibiotics, Zithromax. Immunization status:. Data reviewed: vital signs, nurses notes, lab test result(s). Consideration of Admission/Observation Escalation of care including admission/observation considered. I considered the following discharge prescriptions or medication management in the emergency department Medications were administered in the Emergency Department. See MAR. Independent interpretation of the following test(s) in the Emergency Department X-Ray: My interpretation is CHEST X RAY. Test considered but Not performed: Labs: NO LABS. 04/23 08:22 Order name: SARS RAPID; Complete Time: 10:02 [facility] 04/23 08:22 Order name: Flu [facility] 04/23 08:22 Order name: Chest Pa And Lat (2 Views) XRAY; Complete Time: 10:02 [facility] Administered Medications: 08:54 Drug: AZITHromycin PO 500 mg PO once Route: PO; mb9 09:32 Follow up: Response: No adverse reaction mb9 09:27 Drug: Ondansetron PO 4 mg PO once Route: PO; mb9 10:24 Follow up: Response: No adverse reaction mb9 Disposition Summary: 04/23/23 10:10 Discharge Ordered Notes: Location: Home demetrius Problem: new demetrius Symptoms: have improved demetrius Condition: Stable demetrius Diagnosis - Acute upper respiratory infection, unspecified demetrius - Cough demetrius Followup: demetrius - With: Private Physician - When: As needed - Reason: Recheck today's complaints, Re-evaluation by your physician Discharge Instructions: - Discharge Summary Sheet demetrius - Viral Respiratory Infection demetrius - Cool Mist Vaporizer demetrius - Upper Respiratory Infection, Adult, [id number] demetrius - Cough, Adult [facility] Forms: - Medication Reconciliation Form demetrius - Thank You Letter demetrius - Antibiotic Education demetrius - Prescription Opioid Use demetrius - Patient Portal Instructions demetrius - Leadership Thank You Letter demetrius - Work release form aa5 Prescriptions: - albuterol sulfate 90 mcg/actuation Inhalation HFA Aerosol Inhaler - inhale 2 puff INHALATION route every 4 to 6 hours as needed for shortness of demetrius breath or wheezing; 1 unit; Refills: 0, Product Selection Permitted - Dali-D 12 Hour 60-120 mg Oral Tablet Sustained Release 12 hr - take 1 tablet ORAL route every 12 hours As needed; 20 tablet; Refills: 0, [facility] Product Selection Permitted - Tessalon Perles 100 mg Oral capsule - take 2 capsule ORAL route every 8 hours As needed; 30 capsule; Refills: 0, [facility] Product Selection Permitted - Zithromax Z-Ryland 250 mg Oral Tablet - take 1 tablet ORAL route as directed for 5 days Day 1 - take two (2) tablets [facility] one time. Day 2, 3, 4 , 5 take one (1) tablet once daily.; 6 tablet; Refills: 0, Product Selection Permitted Signatures: Dispatcher [employer] Pascual Estevez MD MD cha Calderon, Audri, RN RN aa5 Tierney Joyce RN RN mb9
--- NOTE | 2023-04-23 10:10 | ER ---
Nurse's Notes [facility] Name: Margarita Doyle Age: 22 yrs Sex: Female : 2000 Arrival Date: 04/23/2023 Time: 08:15 Bed 13 Private MD: Diagnosis: Acute upper respiratory infection, unspecified;Cough Presentation: 04/23 08:22 Chief complaint: Chief complaint: Patient states: body aches, sore throat, cough since aa5 Wednesday. Pt also reports congestion and "out of breath" today. 08:22 Acuity: JANET 3 aa5 08:22 Method Of Arrival: Ambulatory aa5 08:22 Coronavirus screen: congestion, cough unrelated to allergies, muscle pain. Ebola aa5 Screen: Patient denies travel to an Ebola-affected area in the 21 days before illness onset. Initial Sepsis Screen: Does the patient meet any 2 criteria? HR > 90 bpm. Does the patient have a suspected source of infection? No. Patient's initial sepsis screen is negative. Risk Assessment: Do you want to hurt yourself or someone else? Patient reports no desire to harm self or others. Onset of symptoms was April 2023. Historical: - Allergies: 08:33 PENICILLINS; aa5 - PMHx: 08:33 None; aa5 - PSHx: 08:33 Tonsillectomy; aa5 - Immunization history:: Adult Immunizations unknown. - Social history:: Smoking status: Reported history of juuling and/or vaping. Screenin:57 [facility] ED Fall Risk Assessment (Adult) History of falling in the last 3 months, mb9 including since admission No falls in past 3 months (0 pts) Confusion or Disorientation No (0 pts) Intoxicated or Sedated No (0 pts) Impaired Gait No (0 pts) Mobility Assist Device Used No (0 pt) Altered Elimination No (0 pt) Score/Fall Risk Level 0 - 2 = Low Risk Oriented to surroundings, Maintained a safe environment, Educated pt \\T\\ family on fall prevention, incl call for assistance when getting out of bed. Abuse screen: Denies threats or abuse. Nutritional screening: No deficits noted. Tuberculosis screening: No symptoms or risk factors identified. Assessment: 08:54 General: Appears uncomfortable, Behavior is calm, cooperative. Pain: Complains of pain mb9 in entire body Pain does not radiate. Pain currently is 8 out of 10 on a pain scale. Quality of pain is described as aching, Pain began 2-3 days ago. Is continuous. Neuro: Carney Agitation-Sedation Scale (RASS): 0 - Alert and Calm Level of Consciousness is awake, alert, obeys commands, Oriented to person, place, time, situation, Appropriate for age. Cardiovascular: Patient's skin is warm and dry. Respiratory: Reports cough that is Airway is patent Respiratory effort is even, unlabored, Respiratory pattern is regular, symmetrical, Breath sounds are clear bilaterally. Respiratory: Reports shortness of breath. GI: Abdomen is round non-distended, Bowel sounds present X 4 quads. Abd is soft and non tender X 4 quads. Reports nausea. : No signs and/or symptoms were reported regarding the genitourinary system. EENT: Throat is clear. Derm: Skin is pink, warm \\T\\ dry. Musculoskeletal: Range of motion: intact in all extremities. 10:14 Reassessment: No changes from previously documented assessment. Patient and/or family mb9 updated on plan of care and expected duration. Pain level reassessed. Patient is alert, oriented x 3, equal unlabored respirations, skin warm/dry/pink. Vital Signs: 08:22 BP 140 / 107; Pulse 107; Resp 18 S; Temp 98.4(O); Pulse Ox 100% on R/A; Weight 74.39 kg aa5 (R); Height 5 ft. 2 in. (R); 08:56 BP 126 / 92; Pulse 102; Resp 18; Pulse Ox 99% on R/A; mb9 09:32 BP 134 / 90; Pulse 97; Resp 16; Pulse Ox 100% on R/A; mb9 10:23 BP 124 / 86; Pulse 88; Resp 16; Pulse Ox 100% on R/A; mb9 08:22 Body Mass Index 30.00 (74.39 kg, 157.48 cm) aa5 ED Course: 08:18 Patient arrived in ED. mg5 08:20 Pascual Peterson MD is Attending Physician. demetrius 08:22 Arm band placed on. aa5 08:26 Aubrie Mcgee, STEFANY is Primary Nurse. kc6 08:40 Triage completed. aa5 08:45 Tierney Joyce, STEFANY is Primary Nurse. mb9 08:48 Chest Pa And Lat (2 Views) XRAY In Process Unspecified. EDMS 08:54 Placed in gown. Bed in low position. Call light in reach. Side rails up X 1. Client mb9 placed on continuous cardiac and pulse oximetry monitoring. NIBP monitoring applied. 08:54 Flu Sent. mb9 08:54 SARS RAPID Sent. mb9 10:14 No provider procedures requiring assistance completed. Patient did not have IV access mb9 during this emergency room visit. Administered Medications: 08:54 Drug: AZITHromycin PO 500 mg PO once Route: PO; mb9 09:32 Follow up: Response: No adverse reaction mb9 09:27 Drug: Ondansetron PO 4 mg PO once Route: PO; mb9 10:24 Follow up: Response: No adverse reaction mb9 Medication: 08:58 VIS not applicable for this client. mb9 Outcome: 10:10 Discharge ordered by . demetrius 10:23 Discharged to home ambulatory, with family, mb9 10:23 Condition: stable 10:23 Discharge instructions given to patient, family, Instructed on discharge instructions, follow up and referral plans. Demonstrated understanding of instructions, follow-up care, medications, Prescriptions given X 4, 10:25 Patient left the ED. aa5 Signatures: Dispatcher [employer] EDMS Pascual Peterson MD MD cha Calderon, Audri, RN RN [email or web address] Aubrie Mcgee, RN RN Tierney Vargas RN RN mb9 Aranza Duvall mg5 Corrections: (The following items were deleted from the chart) 08:40 08:22 Chief complaint: aa5 aa5 08:40 08:22 Chief complaint: Patient states: body aches, sore throat, cough since Wednesday. aa5 Pt also reports congestion today. Chief complaint: Patient states: body aches, sore throat, cough since Wednesday. Pt also reports congestion today. aa5 08:42 08:39 Coronavirus screen: congestion, cough unrelated to allergies, muscle pain, aa5 aa5 08:42 08:39 Ebola Screen: Patient denies travel to an Ebola-affected area in the 21 days aa5 before illness onset. aa5 08:42 08:39 Risk Assessment: Do you want to hurt yourself or someone else? Patient reports no aa5 desire to harm self or others. aa5 08:42 08:39 Initial Sepsis Screen: Does the patient meet any 2 criteria? HR > 90 bpm. Does [facility] the patient have a suspected source of infection? No. Patient's initial sepsis screen is negative. [facility] 08:39 Onset of symptoms was April 2023 [place] [address] 08:39 Acuity: JANET 3 [place] [address] 08:39 Method Of Arrival: Ambulatory [place] [address]
[2023-04-23 10:32] VITALS: TEMP 98.4
[2023-04-23 10:53] VITALS: BP 124/86; O2SAT 100
== END ==
LOC: ER 08:15
DX: J06.9 Acute upper respiratory infection, unspecified (principal); Z11.52 Encounter for screening for COVID-19; Z88.0 Allergy status to penicillin
CPT/HCPCS: 36415; 87804 ×2; 71046; 99284; 87811; Q0162